=== PATIENT | male | born 1945 | race Caucasian/White ===

== ENCOUNTER 2022-10-12 18:45 | Inpatient (IN) | payer MEDICARE, OTHER ==
[~2022-10-12] VITALS: Ht 180.3 cm; Wt 80.3 kg
--- NOTE | 2022-10-12 19:56 | NUR ---
IV STARTED LAC IV#18. BLOOD DRAWN AND SENT TO LAB.
--- NOTE | 2022-10-12 19:57 | NUR ---
XRAT AT BEDSIDE.
[2022-10-12] MEDS ORDERED: IV NS 0.9% 1,000 ML BAG IV ONE (20:00)
[2022-10-12 20:31] LABS: BASOPHILS % (AUTO) 0.1 % (0.0-2.0); EOSINOPHILS % (AUTO) 0.1 % (0.0-6.0); HEMATOCRIT 39 % (39-51); HEMOGLOBIN 12.8 g/dL (13.5-17.5); LYMPHOCYTES # (AUTO) 0.6 K/uL (0.8-4.8); LYMPHOCYTES % (AUTO) 7.3 % (20.0-44.0); MEAN CORPUSCULAR HGB CONC 33 g/dl (31.0-36.0); MEAN CORPUSCULAR VOLUME 94 fL (80-96); MONOCYTES # (AUTO) 1.6 K/uL (0.1-1.30); MONOCYTES % (AUTO) 19.8 % (2.0-12.0); NEUTROPHILS # (AUTO) 5.9 K/uL (1.8-8.9); NEUTROPHILS % (AUTO) 72.7 % (43.0-81.0); PLATELET COUNT (AUTO) 236 K/uL (150-450); RED BLOOD CELL COUNT(AUTO) 4.16 MIL/uL (4.5-6.0); WHITE BLOOD COUNT (AUTO) 8.1 K/uL (4.3-11.0)
[2022-10-12] MEDS ORDERED: LIDOCAINE 2% JEL UROJET 10 ML MM ONE (20:42)
[2022-10-12 20:50] LABS: CALCIUM, SERUM 8.7 mg/dL (8.5-10.1); CARBON DIOXIDE 28 mmol/L (21-32); CHLORIDE 99 mmol/L (98-107); CREATININE 3.1 mg/dL (0.6-1.3); GLUCOSE 117 mg/dL (74-106); POTASSIUM 4.3 mmol/L (3.5-5.1); SODIUM SERUM 135 mmol/L (136-145); UREA NITROGEN, BLOOD 47 mg/dL (7-18)
[2022-10-12 21:16] LABS: ALANINE AMINOTRANSFERASE 23 U/L (12-78); ALBUMIN 2.9 g/dL (3.4-5.0); ALKALINE PHOSPHATASE 107 U/L (46-116); ASPARTATE AMINOTRANSFERASE 41 U/L (15-37); BILIRUBIN,DIRECT 0.1 mg/dL (0.0-0.2); BILIRUBIN,TOTAL 0.3 mg/dL (0.2-1.0)
--- NOTE | 2022-10-12 21:33 | NUR ---
urine collected and sent to lab.
[2022-10-12 21:47] LABS: BILIRUBIN,URINE 1+ (NEGATIVE); COLOR,URINE YELLOW (YELLOW); LEUKOCYTE ESTERASE ,URINE NEGATIVE (NEGATIVE); NITRITE, URINE NEGATIVE (NEGATIVE); PH,URINE 5.5 (5.0-8.0); PROTEIN,URINE NEGATIVE (NEGATIVE); UGLUCOSE NEGATIVE (NEGATIVE); UROBILINOGEN,URINE 0.2 EU/dL (0.2)
[2022-10-12 22:00] VITALS: BP 125/67
--- NOTE | 2022-10-12 22:18 | NUR ---
covid swab collected and sent to lab.
[2022-10-12 22:19] LABS: BAND % (MANUAL) 18 % (0.0-5.0); LYMPHOCYTES % (MANUAL) 10 % (16-48); METAMYELOCYTES % 3 % (0-0); MONOCYTES % (MANUAL) 15 % (0-11.0); NEUTROPHILS % (MANUAL) 54 (42-76)
[2022-10-12 22:21] LABS: BACTERIA,URINE None seen /HPF (None Seen); RBC,URINE 0-2 /HPF (0-2); SQUAMOUS EPITHELIAL CELL,UR 0-2 /HPF (None Seen); WBC,URINE 0-2 /HPF (0-3)
[2022-10-12 22:22] LABS: MUCUS,URINE Few /LPF (None Seen)
[2022-10-12] MEDS ORDERED: IV NS 0.9% 1,000 ML IV ONE (22:30)
[2022-10-13] MEDS ORDERED: hydrALAZINE HCL IV 20 MG VIAL IV PRN (00:30)
[2022-10-13] MEDS ORDERED: LOPERAMIDE HCL (2 MG CAP) 2 MG CAPSULE PO PRN (00:30)
[2022-10-13] MEDS ORDERED: ONDANSETRON HCL/PF 4 MG/2 ML VIAL IVP PRN (00:30)
[2022-10-13] MEDS ORDERED: ACETAMINOPHEN 325 MG TABLET PO PRN (00:30)
[2022-10-13] MEDS ORDERED: MORPHINE SULFATE INJ 2 MG/ML DISP.SYRIN IV PRN (00:30)
--- NOTE | 2022-10-13 00:45 | NUR ---
report given to Priscila RN to continue care.
--- NOTE | 2022-10-13 01:10 | NUR ---
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
[2022-10-13 01:15] VITALS: BP 125/67
--- NOTE | 2022-10-13 01:26 | NUR ---
wheeled patient via gurney accompanied by RN and emt in no distress. RN assigned at [facility] to assume care.
[2022-10-13] MEDS: IV NS 0.9% 1,000 ML IV SCH ×2 (01:36→17:02)
--- NOTE | 2022-10-13 01:36 | NUR ---
BELT MEASURER NOTES STARTED ON NS AT 75ML/HR RATE,INFUSING VIA IV PUMP ON LEFT AC SALINE LOCK
[2022-10-13 05:00] VITALS: BP 129/48
--- NOTE | 2022-10-13 06:00 | NUR ---
RETRIMMER NOTES PULLED OUT HIS SALINE LOCK,NEW SALINE LOCK PLACE ON RIGHT FOREARM #22,SAME IVF RE STARTED.
--- NOTE | 2022-10-13 06:43 | NUR ---
PERSONAL PROPERTY ASSESSOR NOTES SLEPT WELL SINCE HE CAME IN THE UNIT.NO EPISODE OF LOOSE BOWEL MOVEMENT NOTED.AMBULATE WITH STANDBY ASSIST.IN NO ACUTE DISTRESS.
--- NOTE | 2022-10-13 07:20 | NUR ---
RN OPENING NOTE RECEIVED PATIENT IN BED, AWAKE, A/O X2, VERBALLY RESPONSIVE. NO SIGNS OF ACUTE DISTRESS NOTED. STABLE ON ROOM AIR, NO SOB NOTED, BREATHING EVEN AND UNLABORED. NOTED WITH PERIPHERAL LINE ON RIGHT FORE ARM #22G, RUNNING NS @ 75 ML/HR. DENIES ANY PAIN AT THIS TIME. ON TELE MONITOR, CURRENT READING SINUS RHYTHM, HR @ 62. SAFETY MEASURE IN PLACE. BED IN LOWEST AND LOCKED POSITION. SIDE RAILS UP X2, CALL LIGHT PLACED WITHIN EASY REACH, WILL CONTINUE TO MONITOR PATIENT.
[2022-10-13 08:00] VITALS: BP 113/44
[2022-10-13] MEDS: HEPARIN SODIUM, PORCINE 5000 UNITS/1 ML VIAL SQ SCH ×2 (08:31→20:38)
[2022-10-13] MEDS ORDERED: ROSU10TA29 PO (09:23)
[2022-10-13] MEDS ORDERED: AMLO2.5T4 PO (09:23)
[2022-10-13] MEDS ORDERED: CLOP75TA15 PO (09:23)
[2022-10-13] MEDS ORDERED: ALFU10TA10 PO (09:23)
[2022-10-13] MEDS ORDERED: GABA300C PO (09:23)
[2022-10-13] MEDS ORDERED: PANT20TA17 PO (09:23)
[2022-10-13] MEDS ORDERED: ALBU18HF2 IH (09:23)
[2022-10-13 12:00] VITALS: BP 154/80
[2022-10-13 16:00] VITALS: BP 138/50
--- NOTE | 2022-10-13 16:30 | NUR ---
RN NOTE PATIENT PULLED OUT PERIPHERAL LINE. NEW LINE INSERTED ON LEFT WRIST #22G, WITH GOOD BLOOD RETURN. COVERED WITH TRANSPARENT DRESSING.
--- NOTE | 2022-10-13 17:50 | NUR ---
RN NOTE PATIENT NOTED WITH X1 EPISODE OF VOMITING, ZOFRAN 4MG IVP GIVEN. ALIZE GIRON AWARE. SEEN AND EXAMINED PATIENT.
[2022-10-13] MEDS ORDERED: ALBUTEROL FS 2.5 MG/0.5 ML VIAL.NEB NEB PRN (18:30)
--- NOTE | 2022-10-13 18:41 | NUR ---
ORTHOSTATIC BP: LYING: B/P 130/52, HR 71 SITTING: B/P 153/70, HR 70 STANDING: B/P 151/67, HR 71
[2022-10-13] MEDS: METRONIDAZOLE 500MG/ NS 100ML 500 MG in PREMIX 1 EA IV SCH (18:44)
--- NOTE | 2022-10-13 18:48 | NUR ---
RN CLOSING NOTE PATIENT IN BED, AWAKE, NO SIGNS OF ACUTE DISTRESS NOTED. REMAINS STABLE ON ROOM AIR, NO SOB NOTED, BREATHING EVEN AND UNLABORED. NAUSEA RESOLVED. WITH PERIPHERAL LINE ON LEFT WRIST #22G, CURRENTLY RUNNING ABX OF FLAGYL. REMAINS ON TELE MONITOR, WITH CURRENT READING OF SINUS RHYTHM, HR @ 71. SAFETY MEASURE MAINTAINED. BED IN LOWEST AND LOCKED POSITION. SIDE RAILS UP X2, CALL LIGHT PLACED WITHIN EASY REACH, WILL ENDORSE TO NEXT SHIFT FOR ANJEL.
--- NOTE | 2022-10-13 19:48 | NUR ---
RN OPENING NOTES RECEIVED PT IN BED, AWAKE. AOx3, WITH PERIODS OF FORGETFULNESS. ON RA AND TOLERATING WELL. NO SOB NOTED. NO S/SX OF RESPIRATORY DISTRESS NOTED. TELE MONITOR DETECTS SR WITH RATE OF 71. IV ACCESS IN L WRIST #22G RUNNING NS @ 75 ML/HR. SAFETY PRECAUTIONS IN PLACE: BED IN LOWEST, LOCKED POSITION, SIDERAILS UPx2, AND BRAKES ON. TABLE AND CALL LIGHT WITHIN REACH. ALL NEEDS MET AT THIS TIME.
[2022-10-13 20:00] VITALS: BP 155/65
[2022-10-13] MEDS: CEFTRIAXONE 1 G in IV D5W 50 ML IV SCH (20:35)
[2022-10-13 20:43] LABS: IRON, SERUM 11 ug/dl (50-175); TOTAL IRON BINDING CAPACITY 214 ug/dl (250-450)
--- NOTE | 2022-10-13 21:01 | NUR ---
RN NOTES ADMINISTERED MORPHINE FOR CHEST TIGHTNESS. VS WNL.
[2022-10-13] MEDS: ATORVASTATIN 10 MG TABLET PO SCH (21:35)
[2022-10-13 21:44] LABS: FERRITIN 110 ng/mL (8-388)
[2022-10-14] VITALS: BP 158/43
[2022-10-14] MEDS: IV NS 0.9% 1,000 ML IV SCH ×2 (02:16→16:40)
[2022-10-14 04:00] VITALS: BP 122/78
[2022-10-14] MEDS: METRONIDAZOLE 500MG/ NS 100ML 500 MG in PREMIX 1 EA IV SCH ×3 (04:38→22:04)
[2022-10-14 06:46] LABS: ALANINE AMINOTRANSFERASE 35 U/L (12-78); ALBUMIN 2.2 g/dL (3.4-5.0); ALKALINE PHOSPHATASE 76 U/L (46-116); ASPARTATE AMINOTRANSFERASE 75 U/L (15-37); BILIRUBIN,TOTAL 0.2 mg/dL (0.2-1.0); CARBON DIOXIDE 27 mmol/L (21-32); CHLORIDE 106 mmol/L (98-107); CREATININE 0.9 mg/dL (0.6-1.3); GLUCOSE 91 mg/dL (74-106); MAGNESIUM 2.4 mg/dL (1.8-2.4); PHOSPHORUS 1.3 mg/dL (2.5-4.9); POTASSIUM 3.5 mmol/L (3.5-5.1); SODIUM SERUM 137 mmol/L (136-145); TOTAL PROTEIN, SERUM 5.4 g/dL (6.4-8.2); UREA NITROGEN, BLOOD 28 mg/dL (7-18)
[2022-10-14 07:29] LABS: BASOPHILS % (AUTO) 0.3 % (0.0-2.0); EOSINOPHILS % (AUTO) 2.3 % (0.0-6.0); HEMATOCRIT 32 % (39-51); HEMOGLOBIN 10.6 g/dL (13.5-17.5); MEAN CORPUSCULAR HGB CONC 33 g/dl (31.0-36.0); MEAN CORPUSCULAR VOLUME 93 fL (80-96); MONOCYTES # (AUTO) 1.1 K/uL (0.1-1.30); MONOCYTES % (AUTO) 21.2 % (2.0-12.0); NEUTROPHILS # (AUTO) 2.9 K/uL (1.8-8.9); NEUTROPHILS % (AUTO) 57.2 % (43.0-81.0); PLATELET COUNT (AUTO) 214 K/uL (150-450); RED BLOOD CELL COUNT(AUTO) 3.44 MIL/uL (4.5-6.0)
--- NOTE | 2022-10-14 07:32 | NUR ---
RN OPENING NOTES RECEIVED PT IN BED, AWAKE. AOx3, VERBALLY RESPONSIVE WITH PERIODS OF FORGETFULNESS. ON RA AND TOLERATING WELL. NO SOB NOTED. NO S/SX OF RESPIRATORY DISTRESS NOTED. TELE MONITOR READING OG SR WITH RATE OF 71. IV ACCESS IN L WRIST #22G RUNNING NS @ 75 ML/HR. SAFETY PRECAUTIONS IN PLACE: BED IN LOWEST, LOCKED POSITION, SIDERAILS UPx2, AND BRAKES ON. TABLE AND CALL LIGHT WITHIN REACH. WILL CONTINUE TO MONITOR
--- NOTE | 2022-10-14 07:39 | NUR ---
RN CLOSING NOTES PT IN BED, ASLEEP, AWAKENS TO VERBAL STIMULI. AOx3, WITH PERIODS OF FORGETFULNESS. ON RA AND TOLERATING WELL. NO SOB NOTED. NO S/SX OF RESPIRATORY DISTRESS NOTED. TELE MONITOR DETECTS SR WITH RATE OF 71. IV ACCESS IN L WRIST #22G RUNNING NS @ 75 ML/HR. ALL ORDERS CARRIED OUT. ALL NEEDS MET. PT KEPT CLEAN AND DRY. SAFETY PRECAUTIONS IN PLACE: BED IN LOWEST, LOCKED POSITION, SIDERAILS UPx2, AND BRAKES ON. TABLE AND CALL LIGHT WITHIN REACH. WILL ENDORSE TO ONCOMING SHIFT FOR ANJEL.
[2022-10-14 08:00] VITALS: BP 122/54
[2022-10-14] MEDS: NEUTRA PHOS 1 POWD.PACKET PO SCH ×2 (09:50→16:36)
[2022-10-14] MEDS: AMLODIPINE BESYLATE 2.5 MG TABLET PO SCH ×2 (09:51→16:37)
[2022-10-14] MEDS: GABAPENTIN 300 MG CAPSULE PO SCH ×3 (09:51→16:36)
[2022-10-14] MEDS: TAMSULOSIN 0.4 MG CAP.SR.24H PO SCH (09:51)
[2022-10-14] MEDS: CLOPIDOGREL BISULFATE 75 MG TABLET PO SCH (09:51)
[2022-10-14] MEDS: HEPARIN SODIUM, PORCINE 5000 UNITS/1 ML VIAL SQ SCH ×2 (09:53→21:26)
[2022-10-14] MEDS ORDERED: K PHOS NEUTRAL 250 MG TABLET PO ONE (11:30)
[2022-10-14] MEDS ORDERED: Magnesium 1GM/D5W 100ML PREMIX PIGGYBACK IV ONE (11:30)
[2022-10-14 11:53] LABS: BAND % (MANUAL) 24 % (0.0-5.0); EOSINOPHILS % (MANUAL) 1 % (0-4); LYMPHOCYTES % (MANUAL) 26 % (16-48); METAMYELOCYTES % 3 % (0-0); MONOCYTES % (MANUAL) 18 % (0-11.0); NEUTROPHILS % (MANUAL) 28 (42-76)
[2022-10-14 12:00] VITALS: BP 110/52
[2022-10-14] MEDS ORDERED: Magnesium 1GM/D5W 100ML PREMIX 100 ML IV SCH (13:00)
[2022-10-14] MEDS ORDERED: SOD FERRIC GLUC 125 MG in IV NS 0.9% 100 ML IV SCH (14:00)
--- NOTE | 2022-10-14 19:05 | NUR ---
RN CLOSING NOTES RECEIVED PT IN BED, AWAKE. AOx3, VERBALLY RESPONSIVE WITH PERIODS OF FORGETFULNESS. ON RA AND TOLERATING WELL. NO SOB NOTED. NO S/SX OF RESPIRATORY DISTRESS NOTED. TELE MONITOR READING OF SR WITH RATE OF 74 . NEW IV ACCESS IN L EFT UPPER #22G RUNNING NS @ 75 ML/HR. ALL DUE MEDS ORDERED GIVEN , NO C/O OF VAZQUEZ AND DISCOMFORT NOTED , SAFETY PRECAUTIONS IN PLACE: BED IN LOWEST, LOCKED POSITION, SIDERAILS UPx2, AND BRAKES ON. TABLE AND CALL LIGHT WITHIN REACH. ENDORSED TO NEXT SHIFT
--- NOTE | 2022-10-14 19:19 | NUR ---
MS RN OPENING NOTES RECEIVED PATIENT AWAKE IN BED AT THIS TIME. A/O X4, COOPERATIVE AND ABLE TO MAKE NEEDS KNOWN. NO S/S OF SOB OR LABORED BREATHING. DENIES PAIN AT THIS TIME. IV LEFT UPPER ARM #22G RUNNING NS @75 ML/HR, PATENT AND INTACT. SAFETY PRECAUTIONS IN PLACE: BED LOCKED AND IN LOW POSITION, SIDE RAILS UP X2, CALL LIGHT AND TRAY TABLE WITHIN REACH. WILL CONTINUE TO MONITOR AND ASSIST.
[2022-10-14 20:00] VITALS: BP 144/58
[2022-10-14] MEDS: CEFTRIAXONE 1 G in IV D5W 50 ML IV SCH (20:46)
[2022-10-14] MEDS: ATORVASTATIN 10 MG TABLET PO SCH (21:22)
[2022-10-15] MEDS: METRONIDAZOLE 500MG/ NS 100ML 500 MG in PREMIX 1 EA IV SCH (05:20)
[2022-10-15 06:58] LABS: CALCIUM, SERUM 7.8 mg/dL (8.5-10.1); CARBON DIOXIDE 28 mmol/L (21-32); CHLORIDE 105 mmol/L (98-107); CREATININE 0.7 mg/dL (0.6-1.3); GLUCOSE 94 mg/dL (74-106); POTASSIUM 3.6 mmol/L (3.5-5.1); SODIUM SERUM 138 mmol/L (136-145); UREA NITROGEN, BLOOD 14 mg/dL (7-18)
--- NOTE | 2022-10-15 07:23 | NUR ---
MS RN CLOSING NOTES PATIENT AWAKE IN BED AT THIS TIME. A/O X4, ABLE TO MAKE NEEDS KNOWN. NO S/S OF SOB OR LABORED BREATHING. DENIES PAIN AT THIS TIME. IV LEFT UPPER ARM #22G PULLED OUT BY PATIENT. IV ACCESS RETRY UNSUCCESSFUL AFTER MULTIPLE ATTEMPTS BY MULTIPLE NURSES. ENDORSED TO DAY SHIFT NURSE. ALL CARE PROVIDED AND PRESCRIBED MEDICATIONS TOLERATED WELL. SAFETY PRECAUTIONS MAINTAINED: BED LOCKED AND IN LOW POSITION, SIDE RAILS UP X2, CALL LIGHT AND TRAY TABLE WITHIN REACH. WILL ENDORSE ANJEL TO WET POUR MIXER NURSE.
[2022-10-15 10:07] LABS: *SPE ALPHA-1-GLOBULIN 0.3 g/dL (0.0-0.4); *SPE ALPHA-2-GLOBULIN 0.7 g/dL (0.4-1.0); *SPE BETA GLOBULIN 0.7 g/dL (0.7-1.3); *SPE M-SPIKE Not Observed g/dL (Not Observed)
[2022-10-15 10:16] VITALS: BP 138/52
[2022-10-15] MEDS: GABAPENTIN 300 MG CAPSULE PO SCH (10:16)
[2022-10-15] MEDS: TAMSULOSIN 0.4 MG CAP.SR.24H PO SCH (10:16)
[2022-10-15] MEDS: AMLODIPINE BESYLATE 2.5 MG TABLET PO SCH (10:16)
[2022-10-15] MEDS: HEPARIN SODIUM, PORCINE 5000 UNITS/1 ML VIAL SQ SCH (10:17)
[2022-10-15] MEDS: CLOPIDOGREL BISULFATE 75 MG TABLET PO SCH (10:17)
[2022-10-15 10:39] LABS: BASOPHILS % (AUTO) 0.3 % (0.0-2.0); EOSINOPHILS % (AUTO) 1.9 % (0.0-6.0); HEMATOCRIT 34 % (39-51); LYMPHOCYTES # (AUTO) 1.9 K/uL (0.8-4.8); LYMPHOCYTES % (AUTO) 25.7 % (20.0-44.0); MEAN CORPUSCULAR HGB CONC 33 g/dl (31.0-36.0); MEAN CORPUSCULAR VOLUME 93 fL (80-96); MONOCYTES # (AUTO) 0.9 K/uL (0.1-1.30); MONOCYTES % (AUTO) 12.6 % (2.0-12.0); NEUTROPHILS # (AUTO) 4.4 K/uL (1.8-8.9); NEUTROPHILS % (AUTO) 59.5 % (43.0-81.0); PLATELET COUNT (AUTO) 223 K/uL (150-450); WHITE BLOOD COUNT (AUTO) 7.3 K/uL (4.3-11.0)
[2022-10-15] MEDS ORDERED: INFLUENZA VACCINE 2022-23 0.5 ML DISP.SYRIN IM ONE (13:00)
[2022-10-15] MEDS ORDERED: IRON SUCROSE COMPLEX 200 MG in IV NS 0.9% 100 ML IV SCH (14:00)
--- NOTE | 2022-10-15 14:37 | NUR ---
MS RN NOTES PATIENT DISCHARGED SHINING SPOT BOARD AND CARE VIA [facility]. A/O X3, ABLE TO MAKE NEEDS KNOWN. NO S/S OF SOB OR LABORED BREATHING. DENIES PAIN AT THIS TIME. VS: BP 164/63, HR: 64, O2 SAT OF 98 ON ROOM AIR , RR: 20, ORAL TEMP: 98.3. ALL BELONGINGS ACCOUNTED FOR. DISCHARGE PACKET GIVEN TO AMBULANCE CREW. ID BAND REMOVED. CHARGE NURSE AWARE.
== END 2022-10-15 14:38 | DRG 391 ==
LOC: ER 18:57 → TELE 10-13 00:21 → MED 10-14 12:30
PROVIDERS: ADMIT Nurse Practitioner Acute Care; ATTEND Nurse Practitioner Acute Care
DX: A09 Infectious gastroenteritis and colitis, unspecified (principal); N17.0 Acute kidney failure with tubular necrosis; E87.20 Acidosis, unspecified; K56.7 Ileus, unspecified; E86.0 Dehydration; Z20.822 Contact with and (suspected) exposure to COVID-19; Z79.51 Long term (current) use of inhaled steroids; Z79.02 Long term (current) use of antithrombotics/antiplatelets; Z79.899 Other long term (current) drug therapy; E78.5 Hyperlipidemia, unspecified; I10 Essential (primary) hypertension; I25.10 Atherosclerotic heart disease of native coronary artery without angina pectoris; K21.9 Gastro-esophageal reflux disease without esophagitis; G62.9 Polyneuropathy, unspecified; F17.200 Nicotine dependence, unspecified, uncomplicated; N28.1 Cyst of kidney, acquired; E83.39 Other disorders of phosphorus metabolism; D63.8 Anemia in other chronic diseases classified elsewhere; E83.42 Hypomagnesemia; K44.9 Diaphragmatic hernia without obstruction or gangrene
CPT/HCPCS: 36415; 71045-TC; 76770-TC; 80048-TC; 80053-TC; 80076-TC; 81001; 82728-TC; 83540-TC; 83605-TC; 83735-TC; 84100-TC; 84155; 84165; 84484-TC; 85025-TC; 87081-TC; 93307-TC; A4216; C9803; G0378; J0696; J1644; J1756; J2270; J2405; J2916; J3475; J3490; J7030; J7060; Q2036